=== PATIENT | male | born 1995 | race Two or more races ===

== ENCOUNTER 2024-04-06 16:31 | Emergency (ER) | payer OTHER ==
[~2024-04-06] VITALS: Ht 165.1 cm; Wt 74.9 kg
[2024-04-06 17:20] VITALS: BP 125/68
== END 2024-04-06 17:20 | disposition home or self-care (01) ==
LOC: ED 16:31
DX: S63.502A Unspecified sprain of left wrist, initial encounter (principal); W18.30XA Fall on same level, unspecified, initial encounter; Y93.66 Activity, soccer
CPT/HCPCS: 73110; 99283